=== PATIENT | female | born 1990 | race Two or more races ===

== ENCOUNTER 2024-12-01 19:28 | Emergency (ER) | payer OTHER ==
[2024-12-01 19:53] VITALS: TEMP 99; BMI 28.4
[2024-12-01 21:07] LABS: ABSOLUTE IMMATURE GRANULOCYTES 0.02 x10^3/uL (0.0-0.031); BASOPHILS # 0.03 x10^3/uL (0.01-0.08); EOSINOPHIL % 1.3 % (0.7-5.8); EOSINOPHILS # 0.10 x10^3/uL (0.04-0.36); MCHC 33.4 g/dl (32.2-35.5); MEAN CELL VOLUME 91.0 fl (79.4-94.8); MEAN PLT VOLUME 10.0 fl (9.4-12.3); MONOCYTE # 0.49 x10^3/uL (0.24-0.86); MONOCYTE % 6.4 % (4.7-12.5); RDW 12.2 % (12.1-16.8)
[2024-12-01 21:23] LABS: GLUCOSE,RANDOM 131.0 mg/dL (74-106)
[2024-12-01 21:24] LABS: TOT PROT 8.7 g/dl (6.4-8.2)
[2024-12-01 21:25] LABS: CO2 27.0 mmol/L (21-32)
[2024-12-01 21:26] LABS: ALK PHOS 67.0 U/L (40-150)
[2024-12-01 21:29] LABS: CREATININE 0.79 mg/dL (0.55-1.3); SGOT/AST 20.0 U/L (5-34); SGPT/ALT 14.0 U/L (0-55)
[2024-12-01 21:34] LABS: URINE APPEARANCE CLEAR; URINE BILIRUBIN NEGATIVE (NEGATIVE); URINE COLOR YELLOW; URINE GLUCOSE (UA) NEGATIVE (NEGATIVE); URINE KETONE NEGATIVE (NEGATIVE); URINE LEUK ESTERASE NEGATIVE (NEGATIVE); URINE NITRITE NEGATIVE (NEGATIVE); URINE PROTEIN NEGATIVE (NEGATIVE); URINE UROBILINOGEN 0.2 mg/dL (0.2-1.0)
[2024-12-01 21:37] LABS: HCG,QUALITATIVE URINE Negative
[2024-12-01 21:52] LABS: HCV DIAGNOSTIC IN-HOUSE W/RFLX NON-REACTIVE (NONREACTIVE); HIV INTERPRETATION NEGATIVE (NEGATIVE)
[2024-12-01 22:05] VITALS: BP 123/91; PULSE 91; RESP 17
== END 2024-12-01 23:08 | disposition home or self-care (01) ==
LOC: JER 19:28
DX: R55 Syncope and collapse (principal); R19.7 Diarrhea, unspecified; R61 Generalized hyperhidrosis; R10.30 Lower abdominal pain, unspecified
CPT/HCPCS: 36415; 80053; 81003; 83605; 84484; 84703; 85025; 86803; 87389; 93005; 93010; 99284-25